=== PATIENT | male | born 1955 | race Caucasian/White ===

== ENCOUNTER 2019-05-27 07:10 | Inpatient (IN) | payer MEDICARE ==
[~2019-05-27 07:10] MED LIST: CEFAZOLIN 2 Gram 2 GM/50 ML BAG IVPB ONE; FAMOTIDINE 20MG TABLET PO ONE; MECLIZINE 25 MG TABLET PO ONE; METOCLOPRAMIDE 10 MG TABLET PO ONE
[2019-05-27] MEDS ORDERED: RINGERS SOLUTION,LACTATED 1,000 ML IV ONE (08:00)
[2019-05-27] MEDS ORDERED: RINGERS SOLUTION,LACTATED 1,000 ML IV PRN (12:01)
[2019-05-27] MEDS ORDERED: DIPHENHYDRAMINE HCL 25 MG CAPSULE PO PRN (12:30)
[2019-05-27] MEDS ORDERED: HYDROMORPHONE HCL 2 MG/ML VIAL IV PRN (12:30)
[2019-05-27] MEDS ORDERED: AL HYDROX/MAG HYDROX 30ML UD PO PRN (12:30)
[2019-05-27] MEDS ORDERED: ONDANSETRON HCL IV 4 MG/2 ML VIAL IVP PRN (12:30)
[2019-05-27] MEDS ORDERED: METOCLOPRAMIDE HCL 10 MG/2 ML VIAL IVP PRN (12:30)
[2019-05-27] MEDS ORDERED: NALOXONE 0.4 MG/1 ML VIAL IVP PRN (12:30)
[2019-05-27] MEDS ORDERED: ZOLPIDEM TARTRATE 5 MG TABLET PO PRN (12:30)
[2019-05-27] MEDS ORDERED: MAGNESIUM HYDROXIDE 30 ML UDC PO PRN (12:30)
[2019-05-27] MEDS ORDERED: SENNOSIDES/DOCUSATE SODIUM UD CAPSULE PO PRN (12:30)
[2019-05-27] MEDS ORDERED: OXYCODONE HCL/APAP 5MG/325MG TABLET PO PRN (12:30)
[2019-05-27] MEDS ORDERED: TRAMADOL HCL 50 MG TABLET PO PRN (12:30)
[2019-05-27] MEDS ORDERED: ACETAMINOPHEN 325 MG TAB PO PRN (12:30)
[2019-05-27] MEDS ORDERED: 0.9 % SODIUM CHLORIDE 10 ML VIAL IVP ONE (14:33)
[2019-05-27] MEDS ORDERED: DEXAMETHASONE 4 MG/ML 1ML VIAL IVP ONE (14:33)
[2019-05-27] MEDS ORDERED: ROPIVACAINE HCL (NAROPIN) /PF 5MG/ML 20ML VIAL IV ONE (14:33)
--- NOTE | 2019-05-27 14:52 | Rehab Evaluation ---
Patient Information - Patient Information Diagnosis: R Hip DJD Ordered Treatment: PT Evaluate and Treat Status: Initial Evaluation Surgery: Yes (R THR) Date of Surgery: 05/27/19 History: Detail (Patient reports that he had his L knee replaced two months ago.) Past Medical/Surgical Hx: PAST MEDICAL/SURGICAL HISTORY Past Surgical History LTKA RIGHT SHOULDER SCOPE KNEE SCOPE CTS TRIGGER FINGER PMH - Respiratory Hx Respiratory Disorders Yes Hx Pneumonia Yes: A CHILD PMH - Cardiovascular Hx Cardiovascular Disorders No Exercise Tolerance Fair PMH - Neuro Hx Neurological Disorders Yes Hx Seizures Yes: 20 YRS SINCE LAST SEIZURE ON MEDS GRAND MAL PMH - GI Hx Gastrointestinal Disorders No PMH - Hx Genitourinary Disorders No PMH - Endocrine Hx Endocrine Disorders No PMH - Musculoskeletal Hx Musculoskeletal Disorders Yes Hx Arthritis Yes: ALL MAJOR JOINTS PMH - Psych Hx Psychiatric Problems No PMH - Hematology/Oncology Hx Hematology/Oncology No Disorders Premorbid Status: Detail (Prior to surgery, patient stated that he was ambulating using a 4-pt cane.) Social History: Detail (Patient lives in a 2-story home with his . His bedroom and the bathroom that he primarily uses are on the second floor. To get to the second floor there is 12 steps then a landing, and then 6 more steps. There is a railing on the L. To get into the home there are 3 steps to enter without a railing. In the bathroom there is a tub/shower combination with grab bars, a hand-held shower head, and a shower bench. The toilet is of standard height but he has a toilet riser and grab bars by the toilet. He has a front- wheeled walker and a 4-pt cane available to use. The patient is scheduled for outpatient PT following DC.) Precautions: [place], Fall, Other (WBAT on the R LE) - Time With Patient Total Time Spent With Patient (Min): 30 Treatment Procedures: Detail (Initial evaluation; low complexity. The patient was left in bed with his call light and bedside table within reach. His was in the room with him and the nursing staff was notified of his status.) Subjective Information - Subjective Information Per Patient (Patient reports that he is feeling good and he wanted to get up and moving.) Objective Data - Pain Pain Present: Yes (Pain in R hip) Pain Scale Used: Numeric (1 - 10) (4/10 at the start of the evaluation, 4.6/10 at the end of the evaluation) - Mental Status Patient Orientation: Oriented x3 - Visual Perception Appears within normal limits for therapeutic activities - ROM Not within normal limits (R hip ROM is limited as expected s/p R THR procedure. R knee and ankle ROM and L LE ROM is within functional limits.) - Strength/Tone Not within normal limits (R hip strength is limited as expected s/p R THR procedure. R ankle and knee, and L LE strength is within functional limits.) - Coordination Appears within normal limits for therapeutic activities - Bed Mobility Independent (Patient was independent in moving up and down in bed and to the edge of bed. He used the trapeze to help move himself up in bed.) - Transfers Needs Assist (Patient was able to move from sit to stand and stand to sit independently. He was able to move from supine to sit independently. To move from sit to supine, he required min assist to move the R LE after hooking it with the L LE.) - Balance Balance Sitting: Good Balance Standing: Good (Pt stood to urinate at commode w/o upper extremity support, with standby assist.) - Sensation Intact - Gait Detail (Patient ambulated 110 feet over smooth surfaces with a front wheeled walker using WBAT on the R LE and contact guard of 1.) Therapy Assessment - Therapy Assessment Detail (Patient presents with R hip pain, gait abnormalities, and decreased R hip strength and ROM that make him a good candidate for inpatient PT. The patient did well at the first visit and will progress towards meeting his inpatient therapy goals by the time of discharge.) Patient Education - Patient Education Teaching Topic: Precautions (Patient's hip precautions were reviewed with hip and he verbalized good understanding of them. Patient's was also in the room and verbalized understanding of precautions.) Response: Verbalize Understanding Teaching Method: Discussion Teaching Recipient: Patient, Family Problem List - Problem List Physical Therapy Problem List: Detail (1. Pain in R hip 2. Decreased R hip strength 3. Decreased R hip ROM 4. Gait abnormalities 5. Decreased tolerance for stairs) Goals - Goals Physical Therapy Goals: 1. Patient will demonstrate correct technique of HEP exercises for improved hip ROM and strength following discharge. 2. Patient will be able to ambulate household distances independently with a front-wheeled walker to be able to get around his home. 3. Patient will be able to negotiate 12 stairs to get to the second floor to his bedroom with supervision. Prognosis - Prognosis Good Plan - Plan Physical Therapy Plan: Patient will be seen for 1-2 more sessions tomorrow for gait training, stair training, therapeutic exercises and activities, and HEP instruction.
[2019-05-27] MEDS: CEFAZOLIN 2 Gram 2 GM/50 ML BAG IVPB SCH (17:50)
[2019-05-27] MEDS ORDERED: FONDAPARINUX 2.5 MG/0.5 ML SYR SQ SCH (18:00)
[2019-05-27] MEDS: ASPIRIN 325 MG TAB ENTERIC-COATED PO SCH ×2 (20:40→22:45)
[2019-05-27] MEDS ORDERED: LATANOPROST 0.005% OPTH SOLUTION 2.5ML BOTTLE OPTH SCH (22:00)
[2019-05-27] MEDS: TRAMADOL HCL 50 MG TABLET PO PRN (23:47)
[2019-05-28] MEDS: CEFAZOLIN 2 Gram 2 GM/50 ML BAG IVPB SCH ×2 (02:07→09:23)
[2019-05-28] MEDS: TRAMADOL HCL 50 MG TABLET PO PRN ×2 (05:51→10:54)
[2019-05-28 06:31] LABS: HEMATOCRIT 34.4 % (42.0-52.0); HEMOGLOBIN 11.1 gm/dl (14.0-18.0); MEAN CELL VOLUME 93.2 fl (81-97); MEAN CORPUSCULAR HGB CONC 32.3 g/dl (32-36); MEAN PLATELET VOLUME 9.2 fl (7.4-10.4); PLATELET COUNT 140 K/uL (130-400); RED BLOOD COUNT 3.69 M/uL (4.40-5.70); RED CELL DISTRIBUTION WIDTH 12.2 % (11.5-14.5)
[2019-05-28] MEDS ORDERED: HYDROCODONE/APAP 5/325MG TABLET PO PRN (06:45)
[2019-05-28] MEDS ORDERED: PHENYTOIN SODIUM EXTENDED 100 MG CAPSULE PO SCH (10:00)
[2019-05-28] MEDS ORDERED: MELOXICAM 7.5 MG TABLET PO SCH (10:00)
--- NOTE | 2019-05-28 10:23 | Rehab Evaluation ---
Patient Information - Patient Information Diagnosis: R Hip DJD Ordered Treatment: OT Evaluate and Treat Status: Initial Evaluation Surgery: Yes (R THR) Date of Surgery: 05/27/19 History: Detail (Patient reports that he had his L knee replaced two months ago.) Past Medical/Surgical Hx: PAST MEDICAL/SURGICAL HISTORY Past Surgical History LTKA RIGHT SHOULDER SCOPE KNEE SCOPE CTS TRIGGER FINGER PMH - Respiratory Hx Respiratory Disorders Yes Hx Pneumonia Yes: A CHILD PMH - Cardiovascular Hx Cardiovascular Disorders No Exercise Tolerance Fair PMH - Neuro Hx Neurological Disorders Yes Hx Seizures Yes: 20 YRS SINCE LAST SEIZURE ON MEDS GRAND MAL PMH - GI Hx Gastrointestinal Disorders No PMH - Hx Genitourinary Disorders No PMH - Endocrine Hx Endocrine Disorders No PMH - Musculoskeletal Hx Musculoskeletal Disorders Yes Hx Arthritis Yes: ALL MAJOR JOINTS PMH - Psych Hx Psychiatric Problems No PMH - Hematology/Oncology Hx Hematology/Oncology No Disorders Premorbid Status: Detail (Prior to surgery, patient stated that he was ambulating using a 4-pt cane since his knee surgery ~2 months ago. He was independent with all ADLs.) Social History: Detail (Patient lives in a 2-story home with his . His bedroom and the bathroom that he primarily uses are on the second floor. To get to the second floor there is 12 steps then a landing, and then 6 more steps. There is a railing on the L. To get into the home there are 3 steps to enter without a railing. In the bathroom there is a tub/shower combination with grab bars, a hand-held shower head, and a shower bench. The toilet is of standard height but he has a toilet riser and grab bars by the toilet. He has a front- wheeled walker and a 4-pt cane available to use. He also has a sock ironer, sock aide, long-handled shoe horn, and long handled sponge. The patient is scheduled for outpatient PT following DC.) Precautions: [place], Fall, Other (WBAT on the R LE) - Time With Patient Total Time Spent With Patient (Min): 50 (1 eval, 2 self-care) Treatment Procedures: Detail (OT eval: low complexity) Subjective Information - Subjective Information Per Patient (Ok to see per JONATHAN Christianson. Pt upright in chair upon therapist arrival, states, "This hurts a lot more than my knee did." Spouse present for eval.) Objective Data - Pain Pain Present: Yes Pain Scale Used: Numeric (1 - 10) (5/10) - Mental Status Patient Orientation: Oriented x3 - Visual Perception Appears within normal limits for therapeutic activities - ROM Within normal limits (B UEs) - Strength/Tone Within normal limits (B UEs) - Coordination Appears within normal limits for therapeutic activities - Bed Mobility Needs Assist (Supine > EOB with use of trapeze and assist to elevate both legs to bed; assist to roll to L side.) - Transfers Needs Assist (CGA for sit to/from stand from elevated chair to FWW.) - Balance Balance Sitting: Good, Fair Balance Standing: Fair (With use of walker.) - Sensation Intact - Gait Detail (Functional mobility within bedroom from bedside chair to/from BSC over toilet with CGA. Pt demos good awareness of hip precautions during mobility, not twisting hip during turns.) - ADL's/IADL's Detail (OT demos/educates Pt on modified technique to don/doff underwear, pants, socks, and shoes with adaptive equipment. Pt demos fair follow thru, requiring continued verbal cueing for technique and light MIN assist. states she took off from work and will be home at all times upon DC to assist. Pt verbalizes all posterior hip precautions and demos good follow thru. OT educates Pt and spouse on modified techniques for tub/shower TFs, car TFs, and general safety and techniques to maintain hip precautions during home tasks. Pt and spouse demo/verbalize understanding.) - Special Tests No Therapy Assessment - Therapy Assessment Detail (Pt tolerates session well, however painful throughout and after session. Pt requires increased and simplified instructions and verbal/tactile cueing for follow thru of techniques; however demos good knowledge and follow thru with hip precautions. will be available to assist as needed / upon DC until she returns to work. Pt has all anticipated DME needs.) Patient Education - Patient Education Teaching Topic: Equipment Use, Precautions, Other (modified techniques to maintain hip precautions during ADL and home tasks) Response: Return Demonstration, Reinforcement Needed, Verbalize Understanding Teaching Method: Discussion, Demonstration Teaching Recipient: Patient, Significant Other Barriers To Learning: None, Cognitive/Verbal, Other (memory) Problem List - Problem List Physical Therapy Problem List: Detail (1. Pain in R hip 2. Decreased R hip strength 3. Decreased R hip ROM 4. Gait abnormalities 5. Decreased tolerance for stairs) Occupational Therapy Problem List: Detail (No further IP OT needs identified.) Goals - Goals Physical Therapy Goals: 1. Patient will demonstrate correct technique of HEP exercises for improved hip ROM and strength following discharge. 2. Patient will be able to ambulate household distances independently with a front-wheeled walker to be able to get around his home. 3. Patient will be able to negotiate 12 stairs to get to the second floor to his bedroom with supervision. Occupational Therapy Goals: No further IP OT needs/goals identified. Prognosis - Prognosis Good Plan - Plan Physical Therapy Plan: Patient will be seen for 1-2 more sessions tomorrow for gait training, stair training, therapeutic exercises and activities, and HEP instruction. Occupational Therapy Plan: No further skilled inpatient OT needs/goals identified. [place] [facility] services. Thank you for this referral.
[2019-05-28] MEDS: ASPIRIN 325 MG TAB ENTERIC-COATED PO SCH (10:56)
--- NOTE | 2019-05-28 12:13 | Physical Therapy Tx Note ---
Physical Therapy Tx Note - Treatment Note Tolerated: Good Total Time Spent With Patient: 25 Physical Therapy Tx Note: Detail (Patient stated 5/10 pain in the R hip at today's treatment. He ambulated 110 feet over smooth surfaces with a front- wheeled walker independenly WBAT on the R LE. He completed stair training over 12 stairs with good technique using a quad cane and a handrail. Patient was independent in sit to stand and stand to sit. He required min assist to move his R LE into the bed when moving from sit to supine. His HEP was reviewed with him in bed and he demonstrated good form of all exercises. The patient was left in bed, and the surgeon and the pt's was in the room with him.) Physical Therapy Problem List: Detail (1. Pain in R hip 2. Decreased R hip strength 3. Decreased R hip ROM 4. Gait abnormalities 5. Decreased tolerance for stairs) Physical Therapy Goals: 1. Patient will demonstrate correct technique of HEP exercises for improved hip ROM and strength following discharge. GOAL MET. 2. Patient will be able to ambulate household distances independently with a front- wheeled walker to be able to get around his home. GOAL MET. 3. Patient will be able to negotiate 12 stairs to get to the second floor to his bedroom with supervision. GOAL MET Prognosis: Good Physical Therapy Plan: Patient has met all inpatient therapy goals at this time.
[2019-05-28] MEDS ORDERED: ONDANSETRON HCL IV 4 MG/2 ML VIAL IVP ONE (12:47)
[2019-05-28] MEDS ORDERED: ROCURONIUM BROMIDE 50MG/5ML VIAL IV ONE (12:47)
[2019-05-28] MEDS ORDERED: LIDOCAINE 2% MDV (20MG/ML) 20ML VIAL IV ONE (12:47)
[2019-05-28] MEDS ORDERED: MIDAZOLAM HCL 2MG/2ML VIAL IV ONE (12:47)
[2019-05-28] MEDS ORDERED: KETOROLAC 30 MG/ML VIAL IVP ONE (12:47)
[2019-05-28] MEDS ORDERED: FENTANYL PF 100MCG/2ML VIAL IV ONE (12:47)
[2019-05-28] MEDS ORDERED: HYDROMORPHONE HCL 2 MG/ML VIAL IV ONE (12:47)
[2019-05-28] MEDS ORDERED: PROPOFOL 10 MG/ML VIAL IV ONE (12:47)
[2019-05-28] MEDS ORDERED: NEOSTIGMINE 1 MG/1 ML,10ML VIAL IV ONE (12:47)
[2019-05-28] MEDS ORDERED: GLYCOPYRROLATE 0.2 MG/ML ML IV ONE (12:47)
[2019-05-28] MEDS ORDERED: SEVOFLURANE 250 ML INH ONE (12:47)
--- NOTE | 2019-05-31 09:08 | Discharge Summary ---
DATE OF ADMISSION: 05/27/2019 DATE OF DISCHARGE: 05/28/2019 ADMITTING DIAGNOSIS: OSTEOARTHRITIS OF THE RIGHT HIP. DISCHARGE DIAGNOSIS: OSTEOARTHRITIS OF THE RIGHT HIP. OPERATIVE PROCEDURE: RIGHT TOTAL HIP ARTHROPLASTY. This 64-year-old male was admitted to the hospital for total hip arthroplasty and he tolerated the operative procedure well. Drain was removed on the first postoperative day. He cleared physical therapy and was ready for discharge. Pain was controlled at the time of discharge. The patient did not demonstrate any evidence of wound complication or sign of DVT. No chest pain or shortness of breath. The patient cleared physical therapy and will be discharged with outpatient physical therapy set up for Friday05/31/19. He will wear YANIQUE hose during the day and remove them at night. He was given a prescription for [place] 5/325 #30 one every six hours as necessary for pain and aspirin 325 mg daily for four weeks. Routine wound care instructions were given. He will follow-up in two weeks. Should he have any problems prior to being seen he is instructed to call my office. JOB NUMBER: [id number] MTDD
--- NOTE | 2019-05-31 12:30 | Operative Note ---
DATE OF SURGERY: 05/27/2019 SURGEON: Martin Yin DO PREOPERATIVE DIAGNOSIS: Osteoarthritis of the right hip. POSTOPERATIVE DIAGNOSIS: Osteoarthritis of the right hip. OPERATION: Right total hip arthroplasty. DESCRIPTION OF PROCEDURE: This 64-year-old male was taken to the operating room and placed in the supine position on the operating room table. General anesthesia was induced. He was placed in the left lateral decubitus position and bolstered perpendicular to the floor. The right hip was prepped with Hibiclens and draped in the usual sterile fashion. All scrub personnel wore personal isolation suites. A lateral hip incision was made dissecting down through the skin and subcutaneous tissue. Hemostasis obtained with the electrocautery. The tensor was split in line with the skin incision. Gluteus stacie was split to expose the short rotators posteriorly. We then incised the joint capsule and Steinmann pines were used as retractors, one superiorly and one posterosuperiorly and one posteroinferiorly for excellent exposure of the acetabulum. A vernon was made on the greater trochanter which was measured a distance to the most proximal pin, and this distance was restored at the completion of the procedure. The hip was dislocated, the neck amputated, and the cobra retractor placed anteriorly. Extensive osteophyte formation was present anteriorly and posteriorly but actually more anteriorly. Using an osteotome, we excised the osteophytes from the acetabulum. Also, there was a very large labrum which was surgically excised. We removed all the soft tissue from the condyloid notch and began reaming with a size 50 mm reamer in 1 mm increments to a size 54, which was seen to be the appropriate size, to the base of the condyloid notch. The trial component was then placed in the acetabulum, and this was seen to be the appropriate size. Subsequently, after irrigation and removal of any debris, a size 54 mm Trident cup was impacted into place in 40 degrees of abduction and 20 degrees of anteversion. The trial liner was subsequently placed. We then used a box osteotome to cut the proximal femur, and using a copper roller handler printing, we found the center of the femoral canal. Using an alternating ream/broach technique, we were able to increase the size to a size 8, which was seen to be a solid fit with no looseness. We had also used the calcar reamer to smooth the calcar with the size [address] Trial reduction was accomplished off of the 8 and a 32 mm trial head and liner was used. The hip was taken through range of motion with wide abduction and external rotation, flexion to 120 degrees and internal rotation to about 60 degrees with no instability. All trial components were then removed and the wound copiously irrigated with pulse lavage lactated Ringer's solution. A size 8 collared Secur-Fit femoral component was impacted into place, and a 36 mm Biolox head was affixed after a size 36 mm, 10-degree hooded X3 liner was placed in the acetabulum with 10-degree arce in the posterior superior position. The hip was then reduced and again taken through range of motion with excellent stability being identified. The short rotators were repaired with 3 drill holes to the greater trochanter and the capsule was closed. The drain was placed through a separate stab incision. The tensor incision was closed with a #2 Vicryl. The subcutaneous tissue was closed with 0 Vicryl. The skin was stapled. Sterile dressings were applied and the patient taken to the recovery room in satisfactory condition. GROSS PATHOLOGY: This patient demonstrated advanced osteoarthritis of the right hip with osteophytes present anteriorly and inferiorly on the acetabulum and some posteriorly as well. The final components inserted were a Marisa size 8 collared Secur-Fit femoral component, a 56 mm Trident cup, a 36 mm Biolox plus 0 head, and a 36 mm X3 10- degree hooded liner. [facility]
== END 2019-05-28 12:48 | disposition home or self-care (01) | DRG 470 ==
LOC: MEDSURG 07:10
PROVIDERS: ADMIT Orthopaedic Surgery; ATTEND Orthopaedic Surgery
PROC: 0SR906A Replacement of Right Hip Joint with Oxidized Zirconium on Polyethylene Synthetic Substitute, Uncemented, Open Approach (ICD-10-PCS; principal; 2019-05-27 09:30)
DX: M16.11 Unilateral primary osteoarthritis, right hip (principal); H40.9 Unspecified glaucoma
CPT/HCPCS: 76942; 85025; C1776; J1885; J2405; J2710; J7120